=== PATIENT | female | born 1990 | race Caucasian/White ===

== ENCOUNTER 2017-01-05 20:46 | Emergency (ER) | payer SELFPAY ==
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
--- NOTE | 2017-01-06 00:55 | ED ORDER SUMMARY ---
..... Patient: ESTELA ROQUE OrderSheet [facility] VisitID: [id number] [place] [address] 26y, F Registration Date/Time: 01/05/2017 ORDER SHEET Weight: 47.6 kg (stated) Allergies: None GENERAL ORDERS: Urine Drug Screen Urgent (21:14 01/05/2017 Ariel Estevez) (Ack 21:20 AMcQuoid ER Tech1) (22:34 ALawrence ER Tech1) CBC w Diff Urgent (23:00 01/05/2017 Ariel Estevez) (Ack 23:06 AMcQuoid ER Tech1) (1:02 JDeElena R.N.) CMP Urgent (23:00 01/05/2017 Ariel Estevez) (Ack 23:06 AMcQuoid ER Tech1) (1:02 JDeElena R.N.) UA-Culture if indicated Urgent (23:00 01/05/2017 Ariel Estevez) (Ack 23:06 AMcQuoid ER Tech1) (23:24 AMcQuoid ER Tech1) Serum Quantitative Urgent (23:00 01/05/2017 Ariel Estevez) (Ack 23:06 AMcQuoid ER Tech1) (1:02 JDeElena R.N.) HIV I and II Urgent (23:00 01/05/2017 Ariel Estevez) (Ack 23:06 AMcQuoid ER Tech1) (1:02 JDeElena R.N.) Hepatitis Evaluation VII Urgent (23:00 01/05/2017 Ariel Estevez) (Ack 23:06 AMcQuoid ER Tech1) (1:02 JDeElena R.N.) MEDICATION ORDERS: Lidocaine Injection 1% (4mL with ceftriaxone) (00:06 01/06/2017 Ariel Estevez) (Ack 0:08 SStone R.N.) (Cancelled: Other1:23 TJayne R.N.) Flagyl PO 2000 mg (NOW) (00:06 01/06/2017 Ariel Estevez) (Ack 0:08 SStone R.N.) (1:22 TJayne R.N.) Azithromycin PO 1000 mg (NOW) (00:07 01/06/2017 Ariel Estevez) (Ack 0:08 SStone R.N.) (1:22 Diego R.N.) Levonorgestrel PO 1.5 mg (NOW) (00:07 01/06/2017 Ariel Estevez) (Ack 0:08 SStone R.N.) (1:21 Diego R.N.) Hydrocodone-APAP PO 5/325 mg (NOW, HIGH ALERT MEDICATION) (01:07 01/06/2017 Ariel Estevez) (1:08 Dieudonne Sapp) Ceftriaxone IM 250 mg (NOW) (01:25 01/06/2017 Diego Sapp verbal order read back to Ariel Estevez) (1:25 Diego R.N.) IV FLUIDS: Ceftriaxone IV 250 mg (with lidocaine once now) (00:06 01/06/2017 Ariel Estevez) (Ack 0:08 SStone R.N.) (Cancelled: Wrong Order1:24 Diego R.N.) ORDER SHEET NOTES: [Electronically signed by Pedro Pablo Kellogg R.N. (02:13 01/06/2017)] [Electronically signed by Shai Valdez Dr. (18:43 01/09/2017)] [Electronically locked/signed by Pedro Pablo Kellogg R.N. (02:13 01/06/2017)]
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
--- NOTE | 2017-01-06 00:55 | ED ORDER SUMMARY ---
..... Patient: ESTELA ROQUE OrderSheet [facility] VisitID: [id number] [place] [address] 26y, F Registration Date/Time: 01/05/2017 ORDER SHEET Weight: 47.6 kg (stated) Allergies: None GENERAL ORDERS: Urine Drug Screen Urgent (21:14 01/05/2017 Ariel Estevez) (Ack 21:20 AMcQuoid ER Tech1) (22:34 ALawrence ER Tech1) CBC w Diff Urgent (23:00 01/05/2017 Ariel Estevez) (Ack 23:06 AMcQuoid ER Tech1) (1:02 JDeElena R.N.) CMP Urgent (23:00 01/05/2017 Ariel Estevez) (Ack 23:06 AMcQuoid ER Tech1) (1:02 JDeElena R.N.) UA-Culture if indicated Urgent (23:00 01/05/2017 Ariel Estevez) (Ack 23:06 AMcQuoid ER Tech1) (23:24 AMcQuoid ER Tech1) Serum Quantitative Urgent (23:00 01/05/2017 Ariel Estevez) (Ack 23:06 AMcQuoid ER Tech1) (1:02 JDeElena R.N.) HIV I and II Urgent (23:00 01/05/2017 Ariel Estevez) (Ack 23:06 AMcQuoid ER Tech1) (1:02 JDeElena R.N.) Hepatitis Evaluation VII Urgent (23:00 01/05/2017 Ariel Estevez) (Ack 23:06 AMcQuoid ER Tech1) (1:02 JDeElena R.N.) MEDICATION ORDERS: Lidocaine Injection 1% (4mL with ceftriaxone) (00:06 01/06/2017 Ariel Estevez) (Ack 0:08 SStone R.N.) (Cancelled: Other1:23 TJayne R.N.) Flagyl PO 2000 mg (NOW) (00:06 01/06/2017 Ariel Estevez) (Ack 0:08 SStone R.N.) (1:22 TJayne R.N.) Azithromycin PO 1000 mg (NOW) (00:07 01/06/2017 Ariel Estevez) (Ack 0:08 SStone R.N.) (1:22 Diego R.N.) Levonorgestrel PO 1.5 mg (NOW) (00:07 01/06/2017 Ariel Estevez) (Ack 0:08 SStone R.N.) (1:21 Diego R.N.) Hydrocodone-APAP PO 5/325 mg (NOW, HIGH ALERT MEDICATION) (01:07 01/06/2017 Ariel Estevez) (1:08 Dieudonne Sapp) Ceftriaxone IM 250 mg (NOW) (01:25 01/06/2017 Diego Sapp verbal order read back to Ariel Estevez) (1:25 Diego R.N.) IV FLUIDS: Ceftriaxone IV 250 mg (with lidocaine once now) (00:06 01/06/2017 Ariel Estevez) (Ack 0:08 SStone R.N.) (Cancelled: Wrong Order1:24 Diego R.N.) ORDER SHEET NOTES: [Electronically signed by Pedro Pablo Kellogg R.N. (02:13 01/06/2017)] [Electronically signed by Shai Valdez Dr. (18:43 01/09/2017)] [Electronically locked/signed by Pedro Pablo Kellogg R.N. (02:13 01/06/2017)]
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
--- NOTE | 2017-01-09 18:43 | ED MAR SUMMARY ---
..... Medication Administration Record [facility] [address] [place] [address] Patient: ESTELA ROQUE Visit ID: [id number] 26y, F Weight: 47.6 kg Height/Length: 59 in BMI: 21.2 ALLERGIES: None Given 00:36 01/06/2017 Merary Chua R.N. Medication Administered: LEVONORGESTREL [PO], Dose: 1.5 mg Tablets PO. Medication Ordered: Levonorgestrel PO 1.5 mg (NOW). Given 00:37 01/06/2017 Merary Chua R.N. Medication Administered: AZITHROMYCIN [PO], Dose: 1000 mg Tablets PO. Medication Ordered: Azithromycin PO 1000 mg (NOW). Given 00:40 01/06/2017 Merary Chua R.N. Medication Administered: CEFTRIAXONE [IM], Dose: 250 mg IM, With: 1% LIDOCAINE 1.5 mL. Medication Ordered: Ceftriaxone IM 250 mg (NOW). Given 01:08 01/06/2017 Pedro Pablo Kellogg R.N. Medication Administered: HYDROCODONE-APAP [PO] (HYDROCODONE-ACETAMINOPHEN), Dose: 1 tab 5/325 mg Tablets PO. Medication Ordered: Hydrocodone-APAP PO 5/325 mg (NOW, HIGH ALERT MEDICATION). Given 01:12 01/06/2017 Merary Chua R.N. Medication Administered: FLAGYL [PO] (METRONIDAZOLE), Dose: 2000 mg Tablets PO. Medication Ordered: Flagyl PO 2000 mg (NOW).
--- NOTE | 2017-01-09 18:43 | ED MED RECONCILIATION SUMMARY ---
Patient: ESTELA ROQUE Medication Reconciliation Report [facility] VisitID: [id number] [address] [place] [address] 26y, F Registration Date/Time: 01/05/2017 Weight: 47.6 kg Height/Length: 59 in. BMI: 21.2 ALLERGIES: None The patient's Home Medications are listed below: CONTINUE TAKING THE FOLLOWING MEDICATIONS: Control Pills The source(s) of the original Home Medication information: patient The following Medications were given to the patient in the Emergency Department: Hydrocodone-APAP [PO] PO 1 tab, administered: 01/06/2017 1:08:00 AM Levonorgestrel [PO] PO 1.5 mg, administered: 01/06/2017 12:36:00 AM Azithromycin [PO] PO 1000 mg, administered: 01/06/2017 12:37:00 AM Flagyl [PO] PO 2000 mg, administered: 01/06/2017 1:12:00 AM Ceftriaxone [IM] IM 250 mg with 1% Lidocaine 1.5 mL, administered: 01/06/2017 12:40:00 AM The following Medications were prescribed to the patient: None.
--- NOTE | 2017-01-09 18:43 | ED MED RECONCILIATION SUMMARY ---
Patient: ESTELA ROQUE Medication Reconciliation Report [facility] VisitID: [id number] [address] [place] [address] 26y, F Registration Date/Time: 01/05/2017 Weight: 47.6 kg Height/Length: 59 in. BMI: 21.2 ALLERGIES: None The patient's Home Medications are listed below: CONTINUE TAKING THE FOLLOWING MEDICATIONS: Control Pills The source(s) of the original Home Medication information: patient The following Medications were given to the patient in the Emergency Department: Hydrocodone-APAP [PO] PO 1 tab, administered: 01/06/2017 1:08:00 AM Levonorgestrel [PO] PO 1.5 mg, administered: 01/06/2017 12:36:00 AM Azithromycin [PO] PO 1000 mg, administered: 01/06/2017 12:37:00 AM Flagyl [PO] PO 2000 mg, administered: 01/06/2017 1:12:00 AM Ceftriaxone [IM] IM 250 mg with 1% Lidocaine 1.5 mL, administered: 01/06/2017 12:40:00 AM The following Medications were prescribed to the patient: None.
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
--- NOTE | 2017-01-09 18:43 | ED MAR SUMMARY ---
..... Medication Administration Record [facility] [address] [place] [address] Patient: ESTELA ROQUE Visit ID: [id number] 26y, F Weight: 47.6 kg Height/Length: 59 in BMI: 21.2 ALLERGIES: None Given 00:36 01/06/2017 Merary Chua R.N. Medication Administered: LEVONORGESTREL [PO], Dose: 1.5 mg Tablets PO. Medication Ordered: Levonorgestrel PO 1.5 mg (NOW). Given 00:37 01/06/2017 Merary Chua R.N. Medication Administered: AZITHROMYCIN [PO], Dose: 1000 mg Tablets PO. Medication Ordered: Azithromycin PO 1000 mg (NOW). Given 00:40 01/06/2017 Merary Chua R.N. Medication Administered: CEFTRIAXONE [IM], Dose: 250 mg IM, With: 1% LIDOCAINE 1.5 mL. Medication Ordered: Ceftriaxone IM 250 mg (NOW). Given 01:08 01/06/2017 Pedro Pablo Kellogg R.N. Medication Administered: HYDROCODONE-APAP [PO] (HYDROCODONE-ACETAMINOPHEN), Dose: 1 tab 5/325 mg Tablets PO. Medication Ordered: Hydrocodone-APAP PO 5/325 mg (NOW, HIGH ALERT MEDICATION). Given 01:12 01/06/2017 Merary Chua R.N. Medication Administered: FLAGYL [PO] (METRONIDAZOLE), Dose: 2000 mg Tablets PO. Medication Ordered: Flagyl PO 2000 mg (NOW).
== END 2017-01-06 01:30 | disposition home or self-care (01) ==
LOC: ED SRH 20:46
DX: T74.21XA Adult sexual abuse, confirmed, initial encounter (principal); M54.5 Low back pain
CPT/HCPCS: 90004; 90073; 90075; 90077; 90078; 90100; 90197; 90364; 92760; 92761; 92762; 92763; 92764; 92765; 92766; 92767; 92863; 95059; 99777